=== PATIENT | female | born 1960 | race Caucasian/White ===

== ENCOUNTER 2021-08-17 10:46 | Emergency (ER) | payer OTHER, SELFPAY ==
[2021-08-17 10:48] VITALS: BP 104/73; PULSE 74; RESP 18; TEMP 36.2; O2SAT 95; BMI 19.7
[2021-08-17 11:05] VITALS: BMI 19.7
--- NOTE | 2021-08-17 11:05 | EKG12_ITS ---
Test Reason : Blood Pressure : / mmHG Vent. Rate : 078 BPM Atrial Rate : 078 BPM P-R Int : 142 ms QRS Dur : 084 ms QT Int : 376 ms P-R-T Axes : 044 045 039 degrees QTc Int : 428 ms Normal sinus rhythm Normal ECG Confirmed by GANESH SHERMAN, MEKHI ([id number]), avid editor DARY VALERIO ([id number]) on 08/19/2021 9:22:22 AM Referred By: NILTON Confirmed By:MEKHI ANDERSEN MD
--- NOTE | 2021-08-17 11:05 | CT_ITS ---
STUDY: CTA HEAD AND NECK WITH CONTRAST REASON FOR EXAM: Female, 60 years old. Dysarthria RADIATION DOSAGE (If Supplied By Facility): CTDIvol = ( 26.69 ) mGy, DLP = ( 1286.60 ) mGycm TECHNIQUE: CT angiography was performed with a multi-detector CT scanner. Data acquisition was obtained from the skull base through the vertex following intravenous administration of IV 100mL Isovue-[id number]. MIP images were reconstructed from the axial data set. Post-processing of the angiographic images was performed, with multiplanar reformation and 3D reconstruction. Individualized dose optimization techniques were used for this CT. COMPARISON: No relevant priors. FINDINGS: Normal bilateral petrous carotid arteries. Normal right cavernous carotid artery with a normal supraclinoid bifurcation. Normal left cavernous carotid artery with a normal supraclinoid bifurcation. Normal right A1 segments of the anterior cerebral artery. Normal left A1 segments of the anterior cerebral artery. Normal intact anterior communicating artery (ACOM). Normal bilateral A2 segments of the anterior cerebral arteries. Normal right M1 and M2 segments of the middle cerebral arteries, with a normal M1 bifurcation. Normal left M1 and M2 segments of the middle cerebral arteries, with a normal M1 bifurcation. Normal right posterior communicating artery (PCOM). Normal left posterior communicating artery (PCOM). Normal bilateral vertebral arteries. Normal basilar artery with a normal basilar bifurcation. The visualized bilateral superior cerebellar (SCA) arteries are normal. Normal bilateral P1, P2 and visualized P3 segments of the posterior cerebral arteries. There is no demonstrated aneurysm of the [place]. There is no demonstrated abnormality of the visualized brain. AORTIC ARCH: Normal visualized aortic arch. Normal origins of the brachiocephalic, left common carotid, and left subclavian arteries. RIGHT CAROTID ARTERIES: Normal right common carotid artery (CCA). Normal right common carotid bulb. Normal origin of the right internal carotid (ICA) artery without a hemodynamically significant stenosis. Normal visualized cervical portion of the right internal carotid artery. Normal origin of the right external carotid artery (ECA). LEFT CAROTID ARTERIES: Normal left common carotid artery (CCA). Normal left common carotid bulb. Normal origin of the left internal carotid (ICA) artery without a hemodynamically significant stenosis. Normal visualized cervical portion of the left internal carotid artery. Normal origin of the left external carotid artery (ECA). VERTEBRAL ARTERIES: Normal bilateral vertebral arteries. CT/STROKE CTA Head AND Neck W/Con IMPRESSION: Normal CTA Head and neck with contrast. N.B. : The above Results were Read Back by Ambrose Silver MD to Dr Juana MD, and understanding confirmed on 08/17/2021 12:27:40 (ET). Electronically Signed: Ambrose Silver MD at 12:28 EDT ,
--- NOTE | 2021-08-17 11:06 | EX.ED.DYSGE1 ---
HPI History of Present Illness Chief Complaint: Neuro S/Sx Informant: patient Narrative Narrative: 60-year-old female presents to the emergency room with dysarthria. Patient states that she was at work today and finished in the bathroom and went to discuss the lack of paper towels in the bathroom with her coworker. She states that she started to speak in for 20 to 30 seconds states that she was speaking very slow and felt like she was slurring her words. She states she knew what she was trying to say and she was cognizant that it did not sound correctly. She noted no other symptoms and they quickly resolved. She states she has never had this before. She notes a history of rheumatoid arthritis and takes prednisone. She did not take the prednisone today. She notes for the past couple days she has been having diarrhea. At the current time the patient feels back at baseline [facility] Medical History Rheumatoid arthritis Home Medications prednisone 10 mg PO DAILY 08/17/21 [History Last Taken Unknown] Allergy/AdvReac Type Severity Reaction Status Date / Time Penicillins Allergy Rash Verified 08/17/21 10:50 Sulfa (Sulfonamide Allergy Rash Verified 08/17/21 10:50 Antibiotics) Surgical History History of appendectomy Social History (Updated 08/17/21 @ 11:[address] Edwardo Arias, ) current gender identity: female Smoking Status: Unknown if ever smoked substance use type: does not use ROS ROS ED Constitutional Constitutional ED: Denies chills, fever(s) or weight loss Eyes Eyes: Denies blurry vision, change in vision or diplopia ENT ENT ED: Denies ear pain, rhinorrhea or sore throat Cardiovascular Cardiovascular: Denies chest pain, orthopnea, palpitations or racing heartbeat Respiratory/Chest Respiratory/Chest: Denies cough, dyspnea or orthopnea Gastrointestinal Gastrointestinal: Reports diarrhea; Denies abdominal pain, nausea or vomiting Genitourinary Genitourinary ED: Denies dysuria, hematuria or urinary frequency Musculoskeletal Musculoskeletal: Denies arthralgias or myalgias Integumentary Denies abscess or rash Neurologic Neurologic: Reports other Details: Dysarthria ; Denies headache(s), paresthesias or weakness Psychiatric Psychiatric: Denies anxiety, depression, suicidal ideation or suicidal thoughts Endocrine Endocrinology: Denies polydipsia, polyphagia or polyuria Allergic/Immunologic Allergic/Immunologic ED: Denies mouth swelling, tongue swelling or urticaria EXAM Physical Exam Const Vital Signs: 08/17/21 10:48 Temperature 97.2 F L Temperature Source Temporal Pulse Rate 74 Respiratory Rate 18 Blood Pressure 104/73 Blood Pressure Mean 83 Pulse Ox 95 Oxygen Delivery Method Room Air Positive well nourished and well developed General Appearance ED: well developed HEENT Reports normocephalic, head/scalp atraumatic, TM's clear and moist mucous membranes Negative for trauma Tympanic Membrane ED: Yes TM's clear Eyes PERRL and EOMs intact bilaterally Neck no lymphadenopathy, supple and no JVD Resp normal respiratory effort and clear to auscultation bilaterally Cardio regular rate, regular rhythm and no murmurs GI normal to inspection, nondistended, normoactive bowel sounds and non-tender Palpation: soft Back/Spine no CVA tenderness and normal ROM Extremity normal to inspection General Extremety ED: Negative for edema General Extremity: Negative for edema Neuro oriented x3 and CN's II-XII intact bilaterally Neuro Narrative: NIH 0 Sensorium / Orientation: alert Motor Exam: strength 5/5 throughout Psych mental status grossly normal Mood & Affect: Negative for depressed or tearful Skin no rashes or lesions noted and no wounds MDM MDM MDM Narrative Medical decision making narrative: Basic blood work showed a nonspecific leukocytosis at 11.4. CTA of the head and neck was negative. Patient is in a normal sinus rhythm. She has an NIH of 0 and no further symptoms. It is possible this could be a TIA versus other. She is to follow-up with her doctor in the next week. She is discussed aspirin therapy. Lab Data Attestation: I reviewed the patient's lab results. Labs: Laboratory Results - last 24 hr 08/17/21 08/17/21 11:20 11:20 WBC 11.4 H RBC 4.24 Hgb 12.2 Hct 39.5 MCV 93.2 MCH 28.8 MCHC 30.9 L RDW Std Deviation 45.4 H RDW Coeff of [place] 13.4 Plt Count 387 MPV 8.3 Immature Gran % (Auto) 0.400 Neut % (Auto) 71.6 H Lymph % (Auto) 15.7 L Meagher % (Auto) 9.0 Eos % (Auto) 2.6 Baso % (Auto) 0.7 Absolute Neuts (auto) 8.1 H Absolute Lymphs (auto) 1.79 Nucleated RBC % 0 Sodium 140 Potassium 3.6 Chloride 104 Carbon Dioxide 32.0 Anion Gap 4 L BUN 15 Creatinine 0.64 Estim Creat Clear Calc 75.05 Est GFR (MDRD) Af Amer 120 Est GFR (MDRD) Non-Af 99 BUN/Creatinine Ratio 23.3 H Glucose 87 Calcium 9.0 Radiography Diagnostic Testing: Clinical Impression(s) from Imaging Studies Head/Neck CTA 08/17/21 11:05 IMPRESSION: Normal CTA Head and neck with contrast. N.B. : The above Results were Read Back by Ambrose Silver MD to Dr Juana MD, and understanding confirmed on 08/17/2021 12:27:40 (ET). Electronically Signed: Ambrose Silver MD at 12:28 EDT , ADDENDUM: 08/17/21 1235 IMPRESSION: Normal CTA Head and neck with contrast. N.B. : The above Results were Read Back by Ambrose Silver MD to Dr Juana MD, and understanding confirmed on 08/17/2021 12:27:40 (ET). Electronically Signed: Ambrose Silver MD at 12:28 EDT , EKG Initial EKG: Attestation: I personally reviewed and interpreted this EKG as follows: Comments: Normal sinus rhythm ventricular rate of 78 bpm Discharge Plan Triage Chief Complaint: Neuro S/Sx ED Provider: Edwardo Arias Dx/Rx/DC Orders Clinical Impression: Dysarthria Instructions: What Is Dysarthria Prescriptions: No Action prednisone 10 mg Tablet 10 mg PO DAILY RF: 0 Primary Care Provider: Gagan Navarro Referrals: Ramon,Gagan PA, PA [Primary Care Provider] - 1 Week Disposition Disposition: Home, Self Care
[2021-08-17 11:29] LABS: Absolute Lymphocyte Count 1.79 X10^3/uL (0.83-4.51); Absolute Neutrophil Count 8.1 X10^3/uL (2.0-7.7); Basophil# 0.08 X10^3/uL; Basophil% 0.7 % (0-1); Eosinophils% 2.6 % (0-5); Hematocrit 39.5 % (37-47); Hemoglobin 12.2 g/dL (12.0-15.0); Lymphocyte # 1.79 X10^3/ul (0.83-4.51); Lymphocyte % 15.7 % (19-41); Mean Corp Hgb Conc 30.9 g/dL (32-36); Mean Corpuscular Hgb 28.8 pg (27.0-32.0); Mean Corpuscular Volume 93.2 fL (81-99); Mean Platelet Vol. 8.3 fl (6.2-12.0); Monocyte# 1.02 X10^3/uL; NRBC Flagged by Analyzer 0 % (0-5); Neutrophil # 8.14 X10^3/uL (2.7-7.7); Neutrophil % 71.6 % (47-70); Platelet Count 387 K/mm3 (150-450); RBC Distribution Width CV 13.4 % (11.6-14.6); RBC Distribution Width SD 45.4 fl (35.1-43.9); Red Blood Count 4.24 M/mm3 (4.2-5.4); White Blood Count 11.4 K/mm3 (4.4-11.0)
[2021-08-17 11:42] LABS: Anion Gap 4 (5-15); BUN 15 mg/dL (7-18); BUN/Creat Ratio 23.3 RATIO (10-20); Chloride 104 mmol/L (98-107); Creatinine, Serum 0.64 mg/dL (0.55-1.02); EST Glomerular Filtration Rate 99 mL/min (>60); Est Glom Filt Rate - Afr Amer 120 mL/min (>60); Estimated Creatinine Clearance 75.05 ml/min; Glucose 87 mg/dL (74-106); Potassium 3.6 mmol/L (3.5-5.1); Sodium Level 140 mmol/L (136-145)
== END 2021-08-17 12:58 | disposition home or self-care (01) ==
PROVIDERS: Emergency Provider Emergency Medicine; PCP Physician Assistant; Visit Provider Emergency Medicine
DX: R47.1 Dysarthria and anarthria (principal); M06.9 Rheumatoid arthritis, unspecified; R19.7 Diarrhea, unspecified; Z79.52 Long term (current) use of systemic steroids
CPT/HCPCS: 70496; 70498; 80048; 85025; 93005; 99283; Q9967; A4216